=== PATIENT | female | born 2000 | race Caucasian/White ===

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

== ENCOUNTER 2023-09-25 13:33 | Emergency (ER) | payer BC, OTHER ==
[2023-09-25 14:47] LABS: Basophils % (A) 1 %; Eosinophils # (A) 0.1 k/uL (0-0.7); Eosinophils % (A) 2 %; HCT 40.7 % (34.0-46.0); HGB 13.2 gm/dL (11.4-16.0); Lymphocytes # (A) 1.5 k/uL (1.0-4.8); Lymphocytes % (A) 33 %; MCH 30.9 pg (25.0-35.0); MCHC 32.5 g/dL (31.0-37.0); MCV 94.9 fL (80.0-100.0); Mean Platelet Volume 8.7; Monocytes # (A) 0.3 k/uL (0-1.0); Monocytes % (A) 7 %; Neutrophils # (A) 2.5 k/uL (1.3-7.7); Neutrophils % (A) 55 %; Platelet Count 198 k/uL (150-450); RBC 4.29 m/uL (3.80-5.40); RDW 12.8 % (11.5-15.5); WBC 4.6 k/uL (3.8-10.6)
[2023-09-25 15:04] LABS: INR 1.1 (<1.2)
[2023-09-25 15:07] LABS: ALT 12 U/L (4-34); AST 21 U/L (14-36); African American GFR (CKD) >90 (>60 ml/min/1.73 sqM); Albumin 3.9 g/dL (3.5-5.0); Alkaline Phosphatase 48 U/L (38-126); Anion Gap 5 mmol/L; Blood Urea Nitrogen 15 mg/dL (7-17); Calcium 8.9 mg/dL (8.4-10.2); Carbon Dioxide 29 mmol/L (22-30); Chloride 104 mmol/L (98-107); Glucose 182 mg/dL (74-99); Non-African American GFR(CKD) >90 (>60 ml/min/1.73 sqM); Potassium 4.3 mmol/L (3.5-5.1); Sodium 138 mmol/L (137-145); Total Bilirubin 0.5 mg/dL (0.2-1.3); Total Protein 6.5 g/dL (6.3-8.2)
--- NOTE | 2023-09-25 15:40 | US ---
EXAMINATION TYPE: US venous doppler duplex LE RT DATE OF EXAM: 09/25/2023 2:26 PM COMPARISON: NONE CLINICAL INDICATION: Female, 22 years old with history of pain, bruising; Patient states she went to urgent care awhile ago and they told her she had a blood clot and gave her ibuprofen. SIDE PERFORMED: Right TECHNIQUE: The lower extremity deep venous system is examined utilizing real time linear array sonog gavino with graded compression, doppler sonography and color-flow sonography. VESSELS IMAGED: Common Femoral Vein Deep Femoral Vein Greater Saphenous Vein * Femoral Vein Popliteal Vein Right Leg: Negative for DVT IMPRESSION: Grayscale, color doppler, spectral doppler imaging performed of the deep veins of the lo wer extremities. There is normal flow, compressibility, vascular waveforms.
[2023-09-25 16:05] VITALS: RESP 18
--- NOTE | 2023-09-25 16:05 | ED ---
Extremity Problem HPI - General Chief complaint: Extremity Problem,Nontraumatic Stated complaint: right leg pain Time Seen by Provider: 09/25/23 13:45 Source: patient, RN notes reviewed Mode of arrival: ambulatory Limitations: no limitations - History of Present Illness Initial comments: 22-year-old female with a history of type 1 diabetes and Lonny's presents emergency department chief complaint of right leg discoloration. Patient states that on the beginning of August she noticed a bump behind her right knee that progressed to a bruise prompting her to go to urgent care. Patient states that she was diagnosed with a superficial blood clot and prescribed ibuprofen and instructed to use at home compresses. Patient states that swelling and bruising went down, but states that some of the bruising return. Patient was concerned for potential DVT due to family history of clotting disorder. Patient's that she was tested for clotting disorder as a child which came back negative. - Related Data Previous Rx's Medication Instructions Recorded Metoclopramide [Reglan] 10 mg PO ACHS PRN #8 tab 05/20/17 Cephalexin [Keflex] 500 mg PO Q6HR 10 Days #40 cap 07/24/19 Allergies Allergy/AdvReac Type Severity Reaction Status Date / Time No Known Allergies Allergy Verified 09/25/23 13:39 Review of Systems ROS Statement: Those systems with pertinent positive or pertinent negative responses have been documented in the HPI. ROS Other: All systems not noted in ROS Statement are negative. Past Medical History Past Medical History: Diabetes Mellitus, Thyroid Disorder Additional Past Medical History / Comment(s): lonny's. hypothyroid. DVT ( right leg ) September 01 symptoms started. History of Any Multi-Drug Resistant Organisms: None Reported Past Surgical History: No Surgical Hx Reported Past Psychological History: No Psychological Hx Reported Smoking Status: Current every day smoker Past Alcohol Use History: None Reported, Occasional Past Drug Use History: Marijuana General Exam Limitations: no limitations General appearance: alert, in no apparent distress Head exam: Present: atraumatic, normocephalic, normal inspection Eye exam: Present: normal appearance, PERRL, EOMI. Absent: scleral icterus, conjunctival injection, periorbital swelling ENT exam: Present: normal exam, mucous membranes moist Neck exam: Present: normal inspection. Absent: tenderness, meningismus, lymphadenopathy Respiratory exam: Present: normal lung sounds bilaterally. Absent: respiratory distress, wheezes, rales, rhonchi, stridor Cardiovascular Exam: Present: regular rate, normal rhythm, normal heart sounds. Absent: systolic murmur, diastolic murmur, rubs, gallop, clicks GI/Abdominal exam: Present: soft, normal bowel sounds. Absent: distended, tenderness, guarding, rebound, rigid Right Knee exam: Present: swelling (no Palpable deformity found on the popliteal region of the patient's knee that was of concern, no overlying ecchymosis or edema present) Back exam: Present: normal inspection Neurological exam: Present: alert, oriented X3, CN II-XII intact Psychiatric exam: Present: normal affect, normal mood Skin exam: Present: warm, dry, intact, normal color. Absent: rash Course Vital Signs 09/25/23 09/25/23 09/25/23 13:35 15:36 16:20 Temperature 98.3 F 98.6 F 98.5 F Pulse Rate 71 79 67 Respiratory 17 18 18 Rate Blood Pressure 113/78 109/72 106/71 O2 Sat by Pulse 100 100 100 Oximetry Medical Decision Making - Medical Decision Making Was pt. sent in by a medical professional or institution (ROSAS Garcia, STUDIO CONTROL OPERATOR, urgent care, hospital, or alf...) When possible be specific @ -No Did you speak to anyone other than the patient for history (EMS, parent, family, police, friend...)? What history was obtained from this source @ -No Did you review nursing and triage notes (agree or disagree)? Why? @ -I reviewed and agree with nursing and triage notes Were old charts reviewed (outside hosp., previous admission, EMS record, old EKG, old radiological studies, urgent care reports/EKG's, alf records)? Report findings @ -No old charts were reviewed Differential Diagnosis (chest pain, altered mental status, abdominal pain women, abdominal pain men, vaginal bleeding, weakness, fever, dyspnea, syncope, headache, dizziness, GI bleed, back pain, seizure, CVA, palpatations, mental health, musculoskeletal)? @ -Visual thrombophlebitis, DVT, broken capillaries, venous stasis, varicose veins EKG interpreted by me (3pts min.). @ -none X-rays interpreted by me (1pt min.). @ -None done CT interpreted by me (1pt min.). @ -None done U/S interpreted by me (1pt. min.). @ -Complex ultrasound of the right lower extremity no evidence of acute DVT What testing was considered but not performed or refused? (CT, X-rays, U/S, labs)? Why? @ -None What meds were considered but not given or refused? Why? @ -None Did you discuss the management of the patient with other professionals (professionals i.e. Dr., PA, STUDIO CONTROL OPERATOR, lab, RT, psych nurse, certified social workers in health care, pneumatic systems operator, teacher, bank operations officer, shelter case manager)? Give summary @ -No Was smoking cessation discussed for >3mins.? @ -No Was critical care preformed (if so, how long)? @ -No Were there social determinants of health that impacted care today? How? (Homelessness, low income, unemployed, alcoholism, drug addiction, transportation, low edu. Level, literacy, decrease access to med. care, senior care, rehab)? @ -No Was there de-escalation of care discussed even if they declined (Discuss DNR or withdrawal of care, Hospice)? DNR status @ -No What co-morbidities impacted this encounter? (DM, HTN, Smoking, COPD, CAD, Cancer, CVA, ARF, Chemo, Hep., AIDS, mental health diagnosis, sleep apnea, morbid obesity)? @ -None Was patient admitted / discharged? Hospital course, mention meds given and route, prescriptions, significant lab abnormalities, going to OR and other pertinent info. @ -Charge. 22-year-old female with complaint of right popliteal swelling. On physical exam no area of deformity was palpated, no ecchymosis was present. P atient denies any paresthesias, decrease in range of motion. Duplex ultrasound of right extremity with no acute evidence of DVT. Discussed with patient that findings are likely secondary to broken capillaries and/or varicose veins in this area. Patient is stable for discharge. I discussed this case with my attending, Dr. Mane, able with plan and for discharge Undiagnosed new problem with uncertain prognosis? @ -No Drug Therapy requiring intensive monitoring for toxicity (Heparin, Nitro, Ins ulin, Cardizem)? @ -No Were any procedures done? @ -No Diagnosis/symptom? @ -Knee pain, varicose veins, broken capillaries Acute, or Chronic, or Acute on Chronic? @ acute Uncomplicated (without systemic symptoms) or Complicated (systemic symptoms)? @ -uncomplicated Side effects of treatment? @ -No Exacerbation, Progression, or Severe Exacerbation? @ -No Poses a threat to life or bodily function? How? (Chest pain, USA, MD, pneumonia, PE, COPD, DKA, ARF, appy, cholecystitis, CVA, Diverticulitis, Homicidal, Suicidal, threat to staff... and all critical care pts) @ -No - Lab Data Result diagrams: 09/25/23 14:35 09/25/23 14:35 Lab Results 09/25/23 09/25/23 09/25/23 Range/Units 14:35 14:35 14:35 WBC 4.6 (3.8-10.6) k/uL RBC 4.29 (3.80-5.40) m/uL Hgb 13.2 (11.4-16.0) gm/dL Hct 40.7 (34.0-46.0) % MCV 94.9 (80.0-100.0) fL MCH 30.9 (25.0-35.0) pg MCHC 32.5 (31.0-37.0) g/dL RDW 12.8 (11.5-15.5) % Plt Count 198 (150-450) k/uL MPV 8.7 Neutrophils % 55 % Lymphocytes % 33 % Monocytes % 7 % Eosinophils % 2 % Basophils % 1 % Neutrophils # 2.5 (1.3-7.7) k/uL Lymphocytes # 1.5 (1.0-4.8) k/uL Monocytes # 0.3 (0-1.0) k/uL Eosinophils # 0.1 (0-0.7) k/uL Basophils # 0.0 (0-0.2) k/uL PT 12.0 (10.0-12.5) sec INR 1.1 (<1.2) Sodium 138 (137-145) mmol/L Potassium 4.3 (3.5-5.1) mmol/L Chloride 104 (98-107) mmol/L Carbon Dioxide 29 (22-30) mmol/L Anion Gap 5 mmol/L BUN 15 (7-17) mg/dL Creatinine 0.72 (0.52-1.04) mg/dL Est GFR (CKD-EPI)AfAm >90 (>60 ml/min/1.73 sqM) Est GFR (CKD-EPI)NonAf >90 (>60 ml/min/1.73 sqM) Glucose 182 H (74-99) mg/dL Calcium 8.9 (8.4-10.2) mg/dL Total Bilirubin 0.5 (0.2-1.3) mg/dL AST 21 (14-36) U/L ALT 12 (4-34) U/L Alkaline Phosphatase 48 (38-126) U/L Total Protein 6.5 (6.3-8.2) g/dL Albumin 3.9 (3.5-5.0) g/dL Disposition Clinical Impression: Varicose vein of leg, Superficial vein thrombosis Narrative: Return to the emergency department symptoms worsen or do not improve. Disposition: HOME SELF-CARE Condition: Good Instructions (If sedation given, give patient instructions): Leg Pain (ED) Is patient prescribed a controlled substance at d/c from ED?: No Referrals: None,Stated [Primary Care Provider] - 1-2 days Time of Disposition: 16:04
[2023-09-25 16:41] VITALS: BP 106/71; PULSE 67; TEMP 98.5
== END 2023-09-25 16:20 | disposition home or self-care (01) ==
LOC: EC 13:33
DX: I82.811 Embolism and thrombosis of superficial veins of right lower extremity (principal); I83.91 Asymptomatic varicose veins of right lower extremity; F17.200 Nicotine dependence, unspecified, uncomplicated
CPT/HCPCS: 36415; 80053; 85025; 85610; 99284

== ENCOUNTER → 2024-08-24 | Outpatient (CLI) | payer BC, OTHER ==
[2024-08-24 19:25] LABS: Basophils # (A) 0.06 X 10*3/uL (0.00-0.10); Eosinophils # (A) 0.03 X 10*3/uL (0.04-0.35); Eosinophils % (A) 0.5 %; HCT 41.9 % (37.2-46.3); HGB 13.9 g/dL (12.0-15.0); Lymphocytes # (A) 1.46 X 10*3/uL (0.90-5.00); Lymphocytes % (A) 23.6 %; MCH 30.3 pg (27.0-32.0); MCHC 33.2 g/dL (32.0-37.0); MCV 91.3 FL (80.0-97.0); Mean Platelet Volume 11.9 FL (9.5-12.2); Monocytes # (A) 0.58 X 10*3/uL (0.20-1.00); Monocytes % (A) 9.4 %; NRBC Per 100 WBC 0 X 10*3/uL (0.00-0.01); Neutrophils # (A) 4.04 X 10*3/uL (1.80-7.70); Neutrophils % (A) 65.3 %; Platelet Count 253 X 10*3/uL (140-440); RBC 4.59 X 10*6/uL (4.10-5.20); WBC 6.18 X 10*3/uL (4.50-10.00)
== END | disposition home or self-care (01) ==
LOC: LABPAT 14:26
PROVIDERS: ATTEND Obstetrics & Gynecology
DX: Z01.812 Encounter for preprocedural laboratory examination (principal)
CPT/HCPCS: 85025

== ENCOUNTER → 2024-08-30 | Day surgery (SDC) | payer BC, OTHER ==
[~2024-08-30] MED LIST: ACETAMINOPHEN IV (For NPO) 1,000 MG/100 ML VIAL ONE; GLYCOPYRROLATE 0.2 MG/ML 2 ML VIAL ONE; HYDROmorphone (PF) 1 MG/ML ONE; KETOROLAC 15 MG/ML 1 ML VIAL ONE; LACTATED RINGERS 1,000 ML IV SCH; LIDOCAINE 1% INJ 10MG/ML (20 ML MDV) ONE; MIDAZOLAM 2 MG/2 ML VIAL ONE; NEOSTIGMINE 1 MG/ML 10 ML VIAL ONE; PROPOFOL 10 MG/ML 20 ML VIAL IV ONE; Pre Op ABX Message 1 EACH MISC MISCELLANE ONE; ROCURONIUM 10 MG/ML (5 ML VIAL) IV ONE; SUCCINYLCHOLINE CHLORIDE 200 MG/10 ML VIAL IV ONE; fentaNYL (PF) 50 MCG/ML 2 ML AMP ONE
[2024-08-30] MEDS: IV FLUID CONTINUATION 1,000 ML IV ONE ×2 (06:33→08:44)
[2024-08-30 06:57] LABS: Glucose,Whole Blood 140 mg/dL (70-110)
[2024-08-30] MEDS: DEXAMETHASONE SOD PHOSPHATE 4 MG/ML 1 ML VIAL IV ONE (07:04)
[2024-08-30] MEDS: ONDANSETRON 4 MG/2 ML VIAL IVP ONE (07:05)
[2024-08-30] MEDS: BUPIVACAINE (PF) 0.25% 30 ML VIAL SQ ONE ×2 (07:26→08:32)
[2024-08-30 09:03] VITALS: TEMP 96.9
[2024-08-30] MEDS: HYDROmorphone 0.5 MG/0.5 ML SYRINGE IVP PRN (09:25)
--- NOTE | 2024-08-30 09:55 | P.OP ---
Date of Procedure: 08/30/24 Preoperative Diagnosis: Left Ovarian Endometrioma Postoperative Diagnosis: 1. Left Ovarian Endometrioma 2. Diffuse Endometriosis throughout the pelvis Procedure(s) Performed: Laparoscopic Left Ovarian Cystectomy Implants: None Anesthesia: PEYMAN Surgeon: Kaylan Manley Estimated Blood Loss (ml): 5 IV fluids (ml): 900 Urine output (ml): 5 Pathology: other (endometrioma cyst wall) Condition: stable Disposition: floor Indications for Procedure: Ms. Martins is a 23 year old G0 with acute, intermittent pelvic pain found to have a 7 centimeter left ovarian endometrioma. Risks, benefits, alternatives to Laparoscopic Left Ovarian Cystectomy, Possible Oophorectoy, Possible Laparotomy are discussed with the patient including risk of bleeding, infection, damage to surrounding structures. The patient understands these risks and desires to proceed with surgery as discussed. Operative Findings: Endometriosis seen diffusely throughout the anterior and posterior cul-de-sacs, on the anterior and posterior uterus, and on the omentum and bowel. Large 7+ centimeter endometrioma seen on the left ovary. Drained for 300mL of old blood. Description of Procedure: Patient was taken to the OR with IV fluid running and pneumatic compression stockings on both legs. General anesthesia was obtained without difficulty. The patient was placed in the dorsal lithotomy position with Dagoberto-type stirrups with knees bent at 30 degree angles. Examination under anesthesia revealed a normal-sized, anteverted uterus. The patient as prepared and draped. The bladder was emptied. A speculum was placed into the vagina. The anterior lip of the cervix was grasped with a single-toothed tenaculum. A uterine manipulator was introduced. A horizontal skin incision was made at the umbilical fold. The periumbilical skin was manually elevated. The Veress needle was introduced into the peritoneal cavity at a straight angle without difficulty. A saline drop test was performed to validate intraperitoneal placement. The pneumoperitoneum was established with CO2 gas to a pressure of 15mmHg. A 5mm trocar was inserted into the abdomen under direct laparoscopic visualization. Intraabdominal survey revealed lack of any visceral or vascular injury. The pelvic and abdominal anatomy was noted as above. Two additional laparoscopic assit ports were placed in the right and left lower quadrants. The endometrioma cyst wall was opened and 300mL of blood was drained from the cyst. The cyst wall was then removed. Viable appearing ovarian stroma was left in situ. The Cyst wall was placed in a 5mL endocatch bag and removed through the left lower quadrant port, which did need to be extended at the fascia and skin. A Wally De La Paz was used to close the fascia at this site. Excellent hemostasis was noted at the end of the case. The patient tolerated the procedure well. All instruments were removed from the abdomen and vagina, and all counts were correct times two. The skin was closed with 4-0 Monocryl in the usual fashion. The patient was taken to the recovery room in stable condition.
[2024-08-30 10:26] VITALS: RESP 14
[2024-08-30 12:05] VITALS: BP 104/67; PULSE 57
== END | disposition home or self-care (01) ==
LOC: OR 06:17
PROVIDERS: ATTEND Obstetrics & Gynecology
DX: N80.122 Deep endometriosis of left ovary (principal); N83.02 Follicular cyst of left ovary
CPT/HCPCS: 81025; 58662; J2250; J0330; J1100; J2710; J2405; J2003; J3010; J1171 ×2; J0131; J1885; J2704; J0665; J1596; 88307